=== PATIENT | female | born 1995 | race American Indian/Alaskan Native ===

== ENCOUNTER 2016-08-23 22:44 | Emergency (ER) | payer OTHER ==
[2016-08-24] MEDS ORDERED: MOTRIN PO ONE (06:30)
--- NOTE | 2016-08-24 06:33 | Emergency Department Report ---
Chief Complaint: Extremity Injury, Upper Stated Complaint: RT HAND INJURY/SWOLLEN Time Seen by Provider: 08/24/16 06:29 - HPI History of Present Illness: Patient is a 20-year-old female presents ED complaining of hand pain times yesterday. Patient states she was at work when she was listed an object and struck another object and got stuck. Patient states pain began shortly after that. Patient states difficulty fully in her right hand to pain. Patient denies fevers/chills/nausea/vomiting/abdominal pain or any other problems.. - ROS Review of Systems: As noted in HPI - Exam Vital Signs: Vital Signs 08/24/16 01:06 Temperature 98.8 F Pulse Rate 70 Respiratory 18 Rate Blood Pressure 112/77 O2 Sat by Pulse 100 Oximetry Physical Exam: GENERAL: Alert and oriented x3, no apparent distress, Normal Gait, atraumatic. LUNGS: Symetrical with respiration, No wheezing, no rales or crackles, CTAB. HEART: S1, S2 present, regular rate and rhythm without murmur, no rubs, no gallops. EXTREMITIES/MUSCULOSKELETAL: No cyanosis, clubbing, rash, lesions or edema. Tenderness to palpation of posterior aspect of hand right hand. Knee minimal swelling. Nonerythematous. + MSE screening note: Focused history and physical exam performed. Due to findings the following was ordered: ED Medical Decision Making - Medical Decision Making Motrin ordered. Hand x-ray ordered. ED Disposition for MSE Condition: Stable Referrals: MIKEL GUILLEN MD [Primary Care Provider] - 3-5 Days
[2016-08-24 07:02] VITALS: BP 118/67
--- NOTE | 2016-08-24 07:36 | XRay Report ---
RIGHT HAND, 2 views: History: Injury, pain. The bony architecture is intact. Bony alignment is normal. No soft tissue abnormalities are seen. The joint spaces appear preserved. IMPRESSION: Normal right hand.
--- NOTE | 2016-08-24 08:11 | Emergency Department Report ---
HPI - General Chief Complaint: Extremity Injury, Upper Time Seen by Provider: 08/24/16 06:29 - HPI HPI: 20-year-old -[place] female comes in stating that her right hand is painful and swollen. Patient reports that she was lifting a box when she felt something popped reports that she had her hand on an object and hand moved causing pain and swelling. She denies any direct trauma. Patient does admit to having a history of pituitary tumor. Patient reports she has not followed up with a camp manager in over 2 years. She is no longer taking any medications for her pituitary tumor. Patient does admit to place ice on her extremity about 13 hours ago. ED Past Medical Hx - Past Medical History Previous Medical History?: No Additional medical history: Pituitary tumor - Surgical History Past Surgical History?: No - Social History Smoking Status: Never Smoker Substance Use Type: None - Medications Home Medications: Home Medications Medication Instructions Recorded Confirmed Last Taken Type Bromocriptine Mesylate [Cycloset] 2.5 mg PO DAILY 09/28/14 09/28/14 09/28/14 History Diclofenac Sodium [Diclofenac 50 mg PO BID 09/28/14 09/28/14 Unknown History Sodium ER] ED Review of Systems ROS: Stated complaint: RT HAND INJURY/SWOLLEN Other details as noted in HPI Constitutional: denies: chills, fever Eyes: denies: eye pain, eye discharge, vision change ENT: denies: ear pain, throat pain Respiratory: denies: cough, shortness of breath, wheezing Cardiovascular: denies: chest pain, palpitations Endocrine: no symptoms reported, intolerance to cold (right hand) Gastrointestinal: denies: abdominal pain, nausea, diarrhea Genitourinary: denies: urgency, dysuria, discharge Musculoskeletal: arthralgia Skin: denies: rash, lesions Neurological: paresthesias Psychiatric: as per HPI (right hand) Hematological/Lymphatic: denies: easy bleeding, easy bruising Physical Exam - Physical Exam Vital Signs: Vital Signs 08/24/16 08/24/16 08/24/16 01:06 06:36 07:01 Temperature 98.8 F 98.6 F Pulse Rate 70 70 Respiratory 18 20 20 Rate Blood Pressure 112/77 Blood Pressure 118/67 [Left] O2 Sat by Pulse 100 99 Oximetry Physical Exam: GENERAL: Alert and oriented x3, no apparent distress, Normal Gait, atraumatic. HEAD: Head is normocephalic and a-traumatic. EYES: Extra ocular muscles are intact. Pupils are equal, round, and reactive to light and accommodation. MOUTH:Mouth is well hydrated and without lesions. Tonsils nonerythematous or swollen, Uvula midline, Tongue not elevated. Mucous membranes are moist. Posterior pharynx clear, no exudate or lesions. Patent airways. EXTREMITIES/MUSCULOSKELETAL: No cyanosis, clubbing, rash, lesions or edema. Full ROM bilaterally. UE/LE Pulses 2+ bilaterally. LE and UE 5+ strength bilaterally , right hand cooler than left hand. Flexor digitorum profundus, flexor polloicis longus intact no loss of sensation, No facial droop, capillary refill less than 2 left hand capillary refill right hand greater than 2 seconds. Tender to palpate on the dorsum side near the ulnar nerve proximal digit 3 and 4 PSYCHIATRIC: Mood is congruent with affect, denies suicidal or homicidal ideations. ED Course Vital Signs 08/24/16 08/24/16 08/24/16 01:06 06:36 07:01 Temperature 98.8 F 98.6 F Pulse Rate 70 70 Respiratory 18 20 20 Rate Blood Pressure 112/77 Blood Pressure 118/67 [Left] O2 Sat by Pulse 100 99 Oximetry ED Medical Decision Making - Radiology Data Radiology results: report reviewed, image reviewed RIGHT HAND, 2 views: History: Injury, pain. The bony architecture is intact. Bony alignment is normal. No soft tissue abnormalities are seen. The joint spaces appear preserved. IMPRESSION: Normal right hand. Transcribed By: TTR Dictated By: LUIS WITT JR, MD Electronically Authenticated By: LUIS WITT JR, MD Signed Date/Time: 08/24/16 0723 - Medical Decision Making Patient's been evaluated by this provider in fast track. Discussed this case with Dr. Hayes she evaluated patient as well we discussed the possibility of a Sloan's disease. Discussed with patient that her x-ray was negative for any fractures. Discussed with patient that she would benefit from follow-up with the primary care provider, laboratory associate, in or hand specialist. Discussed with patient that she can take Tylenol and Motrin for pain control. Patient verbalized understanding Critical care attestation.: If time is entered above; I have spent that time in minutes in the direct care of this critically ill patient, excluding procedure time. ED Disposition Clinical Impression: Hand pain, right Disposition: DISCHARGED TO HOME OR SELFCARE Is pt being admited?: No Does the pt Need Aspirin: No Condition: Stable Instructions: Raynaud Disease (ED), Arthralgia (ED) Additional Instructions: Please follow up with her primary care provider as well as a laboratory associate as well as a camp manager. Referrals: MIKEL GUILLEN MD [Primary Care Provider] - 3-5 Days JOVANI DOWELL MD [Referring] - 3-5 Days TAYLER MONGE MD [Referring] - 3-5 Days RACHEL PRETTY MD [Staff Physician] - 3-5 Days RACHEL MAGANA MD [Referring] - 3-5 Days [facility] [Provider Group] - 3-5 Days [facility] [Provider Group] - 3-5 Days LEONOR RICO MD [Referring] - 3-5 Days OTONIEL AG MD [Staff Physician] - 3-5 Days LASHAY QUESADA [Registered Nurse] - 3-5 Days CHANTELL CRUZ MD [Staff Physician] - 3-5 Days Forms: Work/School Release Form(ED), Accompanied Note
== END 2016-08-24 08:34 | disposition home or self-care (01) ==
LOC: ED 22:44
DX: M79.641 Pain in right hand (principal); D35.2 Benign neoplasm of pituitary gland; M79.89 Other specified soft tissue disorders; X58.XXXA Exposure to other specified factors, initial encounter; Y93.89 Activity, other specified; Y92.89 Other specified places as the place of occurrence of the external cause; Y99.8 Other external cause status

== ENCOUNTER 2017-02-11 16:12 | Emergency (ER) | payer OTHER ==
[2017-02-11 17:55] LABS: Bilirubin,Urine NEG (Negative); Blood,Urine NEG (Negative); Ketones,Urine NEG (Negative); Leukocyte Esterase,Urine NEG (Negative); Mucus,Urine FEW /HPF; Nitrite,Urine NEG (Negative); Protein,Urine <15 mg/dL mg/dL (Negative); Urobilinogen,Urine < 2.0 mg/dL (<2.0); WBC,Urine < 1.0 /HPF (0.0-6.0)
[2017-02-11 18:13] LABS: Anion Gap 15 mmol/L; BUN/Creatinine Ratio 12.85; Blood Urea Nitrogen 9 mg/dL (7-17); Calcium 8.9 mg/dL (8.4-10.2); Carbon Dioxide 25 mmol/L (22-30); Chloride 101.2 mmol/L (98-107); Glucose 83 mg/dL (65-100); Potassium 4.6 mmol/L (3.6-5.0); Sodium 137 mmol/L (137-145)
[2017-02-11 18:19] LABS: Hematocrit 39.6 % (30.3-42.9); Hemoglobin 12.7 gm/dl (10.1-14.3); Mean Corpuscular HGB Conc 32 % (30-34); Mean Corpuscular Hemoglobin 28 pg (28-32); Mean Corpuscular Volume 88 fl (79-97); Platelet Count 209 K/mm3 (140-440); Red Blood Count 4.51 M/mm3 (3.65-5.03); Red Cell Distribution Width 13.7 % (13.2-15.2)
[2017-02-11 18:36] VITALS: BP 90/58
--- NOTE | 2017-02-11 18:47 | Emergency Department Report ---
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 She felt nauseated and then passed out briefly. She hit the back of her head. Probably coworkers attempted to give her something to drink and called EMS. She was transported to this facility without incident. She feels essentially back to normal. She states that yesterday she was feeling congested but didn't have a fever. She doesn't report any purulent sinus drainage. She's had normal menses. Right now she is feeling completely back to her baseline. She does not complain of headache or neck pain breathing difficulty or any abdominal discomfort. This is the patient's third syncopal episode. She was seen here in 2014 when she had a normal CT of her head. She was not admitted at that time. On another occasion the syncope was associated with an ankle injury. She had febrile seizures up until age 2 but not subsequently. She doesn't take any regular medicines. The patient listed a history of pituitary tumor. However, CT of her head in 2014 was completely normal. Patient states that she had an MRI 2013 that showed a pituitary tumor. 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 She has her thyroid studies done and an interval and has never been on medication. She has not been seen by a neurologist. -: Sudden Location: head Radiation: non-radiation Improves with: none Worsens with: none Associated Symptoms: denies other symptoms - Related Data Home Medications Medication Instructions Recorded Confirmed Last Taken Bromocriptine Mesylate [Cycloset] 2.5 mg PO DAILY 09/28/14 09/28/14 09/28/14 Diclofenac Sodium [Diclofenac 50 mg PO BID 09/28/14 09/28/14 Unknown Sodium ER] Allergies Allergy/AdvReac Type Severity Reaction Status Date / Time No Known Allergies Allergy Verified 02/11/17 16:35 ED Review of Systems ROS: Stated complaint: SYNCOPE Other details as noted in HPI Constitutional: denies: chills, fever Eyes: denies: eye pain, eye discharge, vision change ENT: denies: ear pain, throat pain Respiratory: denies: cough, shortness of breath, wheezing Cardiovascular: denies: chest pain, palpitations Endocrine: no symptoms reported Gastrointestinal: denies: abdominal pain, nausea, diarrhea Genitourinary: denies: urgency, dysuria, discharge Musculoskeletal: denies: back pain, joint swelling, arthralgia Skin: denies: rash, lesions Neurological: as per HPI. denies: headache, weakness, paresthesias Psychiatric: denies: anxiety, depression Hematological/Lymphatic: denies: easy bleeding, easy bruising Other: Head injury with laceration ED Past Medical Hx - Past Medical History Additional medical history: Pituitary tumor? Not seen on CT 2014 - Surgical History Past Surgical History?: No - Social History Smoking Status: Never Smoker Substance Use Type: Marijuana - Medications Home Medications: Home Medications Medication Instructions Recorded Confirmed Last Taken Type Bromocriptine Mesylate [Cycloset] 2.5 mg PO DAILY 09/28/14 09/28/14 09/28/14 History Diclofenac Sodium [Diclofenac 50 mg PO BID 09/28/14 09/28/14 Unknown History Sodium ER] ED Physical Exam - General Limitations: No Limitations General appearance: alert, in no apparent distress - Head Head exam: Present: normocephalic, other (3 cm laceration occiput) - Eye Eye exam: Present: normal appearance. Absent: scleral icterus Pupils: Present: other - ENT ENT exam: Present: mucous membranes moist - Neck Neck exam: Present: normal inspection. Absent: tenderness, meningismus - Respiratory Respiratory exam: Present: normal lung sounds bilaterally. Absent: respiratory distress - Cardiovascular Cardiovascular Exam: Present: regular rate, normal rhythm. Absent: systolic murmur, diastolic murmur, rubs, gallop - GI/Abdominal GI/Abdominal exam: Present: soft, normal bowel sounds. Absent: distended, tenderness, guarding, rebound, rigid - Extremities Exam Extremities exam: Present: normal inspection - Back Exam Back exam: Present: normal inspection - Neurological Exam Neurological exam: Present: alert, oriented X3, CN II-XII intact. Absent: motor sensory deficit - Psychiatric Psychiatric exam: Present: normal affect, normal mood - Skin Skin exam: Present: warm, dry, intact, normal color. Absent: rash ED Course Vital Signs 02/11/17 02/11/17 02/11/17 16:33 16:35 16:46 Temperature 98.3 F Pulse Rate 72 68 Respiratory 17 13 Rate Blood Pressure 112/80 112/80 112/80 O2 Sat by Pulse 100 100 Oximetry 02/11/17 02/11/17 02/11/17 16:50 17:00 17:48 Temperature Pulse Rate 65 Respiratory 18 17 Rate Blood Pressure 103/71 112/80 O2 Sat by Pulse 100 100 99 Oximetry 02/11/17 02/11/17 02/11/17 18:00 18:15 18:30 Temperature Pulse Rate 85 70 81 Respiratory 10 L 16 11 L Rate Blood Pressure 99/62 93/55 90/58 O2 Sat by Pulse 100 100 99 Oximetry - Reevaluation(s) Reevaluation #1: monitor worker showed normal sinus rhythm. Patient to be asymptomatic here. I do not think that hospitalization for cardiac monitoring would be of benefit to this patient at this time. A repeat CT I think is without any indication. She is entirely neurologically intact. She's had an appropriate period of observation for her head laceration. She has no significant headache. She did not lose consciousness associated with a head injury. I'm going to refer the patient to neurology. Perhaps it may be useful to repeat her MRI study. 02/11/17 19:16 ED Medical Decision Making - Lab Data Result diagrams: 02/11/17 17:30 02/11/17 17:30 Laboratory Results - last 24 hr 02/11/17 02/11/17 02/11/17 17:30 17:30 17:32 WBC 7.0 RBC 4.51 Hgb 12.7 Hct 39.6 MCV 88 MCH 28 MCHC 32 RDW 13.7 Plt Count 209 Sodium 137 Potassium 4.6 Chloride 101.2 Carbon Dioxide 25 Anion Gap 15 BUN 9 Creatinine 0.7 Estimated GFR > 60 BUN/Creatinine Ratio 12.85 Glucose 83 Calcium 8.9 Urine Color Yellow Urine Turbidity Clear Urine pH 6.0 Ur Specific [place] 1.014 Urine Protein <15 mg/dl Urine Glucose (UA) Neg Urine Ketones Neg Urine Blood Neg Urine Nitrite Neg Ur Reducing Substances Not Reportable Urine Bilirubin Neg Urine Ictotest Not Reportable Urine Urobilinogen < 2.0 Ur Leukocyte Esterase Neg Urine WBC (Auto) < 1.0 Urine RBC (Auto) 1.0 U Epithel Cells (Auto) 1.0 Urine Mucus Few Urine HCG, Qual Negative - EKG Data -: EKG Interpreted by Me EKG shows normal: sinus rhythm, axis, intervals, QRS complexes, ST-T waves Rate: normal - EKG Data Interpretation: other (QT interval is normal QTC normal) Critical care attestation.: If time is entered above; I have spent that time in minutes in the direct care of this critically ill patient, excluding procedure time. ED Disposition Clinical Impression: Syncope Qualifiers: Syncope type: vasovagal syncope Qualified Code(s): R55 - Syncope and collapse Scalp laceration Qualifiers: Encounter type: initial encounter Qualified Code(s): S01.01XA - Laceration without foreign body of scalp, initial encounter Disposition: TO HOME OR SELFCARE Is pt being admited?: No Does the pt Need Aspirin: No Condition: Stable Instructions: Syncope (ED), Staple Care (ED), Laceration (ED), Minor Head Injury (ED) Additional Instructions: Stay well hydrated. Avoid excessive heat exposure. I think it might be useful to have an evaluation by a neurologist. See referral. Return as needed any acute change or problem. Katelyn out in one week. May cleanse wound with peroxide. Referrals: PRIMARY MD ELDER [Primary Care Provider] - 3-5 Days BEBO CHRISTINE MD [Staff Physician] - 2-3 Days Time of Disposition: 19:22
[2017-02-11] MEDS ORDERED: XYLOCAINE 1%/ EPI 1:100,000 INFILTRATI ONE (19:07)
[2017-02-11] MEDS ORDERED: BOOSTRIX IM ONE (19:26)
[2017-02-11] MEDS ORDERED: TYLENOL PO ONE (20:07)
== END 2017-02-11 20:42 | disposition home or self-care (01) ==
LOC: ED 16:12
DX: S01.01XA Laceration without foreign body of scalp, initial encounter (principal); R55 Syncope and collapse; F12.10 Cannabis abuse, uncomplicated; W18.30XA Fall on same level, unspecified, initial encounter; Y93.9 Activity, unspecified; Y92.9 Unspecified place or not applicable; Y99.9 Unspecified external cause status
CPT/HCPCS: 36415; 80048; 81001; 81025; 85027; 90471; 90715; 93005; 93010

== ENCOUNTER 2017-07-27 09:27 | Day surgery (SDC) | payer BC, OTHER ==
[2017-07-27] MEDS ORDERED: NACL 0.9% 500 ML 500 ML IV SCH (11:00)
[2017-07-27] MEDS ORDERED: ADRENALIN ONE (11:54)
[2017-07-27] MEDS ORDERED: ATROPINE 0.1% (CARDIAC) ONE ×2 (11:54→11:55)
[2017-07-27] MEDS ORDERED: NACL 0.9% 500 ML 500 ML ONE (11:56)
[2017-07-27] MEDS: NITROSTAT SL ONE ×2 (12:11→12:18)
--- NOTE | 2017-07-27 12:35 | Short Stay Summary ---
Short Stay Documentation Date of service: 07/27/17 - History H&P: obtained from office - Allergies and Medications Current Medications: Allergies No Known Allergies Allergy (Verified 02/11/17 16:35) Home Medications Medication Instructions Recorded Confirmed Last Taken Type Cabergoline 0.25 mg PO 2XW 07/27/17 07/27/17 07/23/17 History Active Medications Sodium Chloride (Nacl 0.9% 500 Ml) 500 mls @ 50 mls/hr IV DIRECT YISSEL Stop: 07/27/17 20:59 - Physical exam General appearance: no acute distress Integumentary: no rash HEENT: Atraumatic Lungs: Clear to auscultation Breasts: deferred Heart: Regular rate Gastrointestinal: normal Female Genitourinary: deferred Rectal Exam: deferred Extremities: no ischemia Neurological: Normal gait - Brief post op/procedure progress note Date of procedure: 07/27/17 Pre-op diagnosis: Syncope Post-op diagnosis: same Procedure: TTT Anesthesia: MAC Findings: See report Surgeon: AMANDA GALLARDO Estimated blood loss: none Pathology: none Condition: stable - Hospital course Hospital course: Uneventful - Disposition Condition at discharge: Good Disposition: DC-01 TO HOME OR SELFCARE Short Stay Discharge Plan Activity: advance as tolerated Weight Bearing Status: Weight Bear as Tolerated Diet: regular Follow up with: CRISELDA LEVINE MD [Primary Care Provider] - 7 Days
[2017-07-27 14:39] VITALS: BP 102/67
--- NOTE | 2017-07-27 20:17 | Procedure Note ---
PROCEDURE: Tilt table test. ORDERING PHYSICIAN: Enrico Oropeza M.D. INDICATION: Multiple episodes of syncope. DESCRIPTION OF PROCEDURE: After obtaining the consent, the patient was brought to the section laborer area. The patient was securely placed on the tilt table test. The patient's blood pressure prior to tilting was 103/67 with a heart rate of 64 beats per minute. The patient was tilted 85 degrees from horizontal. Immediately after tilting, her blood pressure was 106/76 with a heart rate of 102 beats per minute. The patient was kept in the upright position for 10 minutes. At the end of these 10 minutes, her blood pressure was 112/81 with a heart rate of 87, sinus rhythm. The patient was given 0.4 mg of sublingual nitroglycerin. She was kept in the upright position for another 10 minutes. At the end of these 10 minutes, her blood pressure was 114/82 with a heart rate was 77, sinus rhythm. There were no episodes of syncope bradyarrhythmias or drop in blood pressure. IMPRESSION: This is a negative tilt table test with no evidence of cardiodepressor or vasoinhibitor response. RECOMMENDATION: Follow up with referring physician. JOB# [id number] DEANDRA/KEON
== END 2017-07-27 13:05 | disposition home or self-care (01) ==
LOC: CATHLABREC 09:27
PROVIDERS: ATTEND Internal Medicine
DX: R55 Syncope and collapse (principal); J45.909 Unspecified asthma, uncomplicated
CPT/HCPCS: 93660; J0461; J7040; J0171